=== PATIENT | female | born 1965 | race Caucasian/White ===

== ENCOUNTER 2016-03-29 13:58 | Emergency (ER) | payer OTHER ==
[~2016-03-29] VITALS: Ht 170.2 cm; Wt 61.2 kg
[2016-03-29] MEDS ORDERED: ZOFRAN ODT8 MG PO (15:13)
[2016-03-29] MEDS ORDERED: NORCO 5-325 TA1 EACH PO (15:18)
[2016-03-29 15:24] VITALS: BP 126/77
== END 2016-03-29 15:26 | disposition home or self-care (01) ==
LOC: ER 13:58
DX: G43.909 Migraine, unspecified, not intractable, without status migrainosus (principal); R11.0 Nausea